=== PATIENT | female | born 1945 | race Caucasian/White ===

== ENCOUNTER 2022-08-17 10:26 | Inpatient (IN) | payer MEDICARE, OTHER ==
[~2022-08-17] VITALS: Ht 162.6 cm; Wt 65.8 kg
[~2022-08-17 10:26] MED LIST: AMOCLA875 PO; CYCL10 PO; HYDACE5 PO; TRAZ100 PO
[2022-08-17 10:53] LABS: Base Excess Venous 15.2 mmol/L; Bicarbonate Venous 35.5 mmol/L (24.0-30.0); PCO2 Venous 93.8 mmHg (38-42); pH Blood Venous 7.26 (7.34-7.37)
[2022-08-17 10:55] LABS: BASOPHILS ABSOLUTE AUTO 0.02 K/mm3 (0.00-0.23); BASOPHILS PERCENT AUTO 0 % (0-2); EOSINOPHILS PERCENT AUTO 0 % (0-6); Hematocrit 36.7 % (33.0-51.0); Hemoglobin 11.2 g/dL (11.5-16.0); IMMATURE GRAN ABSOLUTE AUTO 0.14 K/mm3 (0.00-0.10); IMMATURE GRAN PERCENT AUTO 1 % (0-1); LYMPHOCYTES ABSOLUTE AUTO 0.63 K/mm3 (0.84-5.20); LYMPHOCYTES PERCENT AUTO 5 % (21-46); MONOCYTES ABSOLUTE AUTO 0.88 K/mm3 (0.16-1.47); MONOCYTES PERCENT AUTO 7 % (4-13); Mean Corpuscular HGB 30.9 pg (26.0-34.0); Mean Corpuscular HGB Conc 30.5 g/dL (31.5-36.5); Mean Corpuscular Volume 101 fL (80-100); Mean Platelet Volume 9.7 fL (9.1-12.4); NEUTROPHILS ABSOLUTE AUTO 10.35 K/mm3 (1.96-9.15); NEUTROPHILS PERCENT AUTO 86 % (41-73); Platelet Count 296 K/mm3 (150-400); RDW Coefficient Variation 13.6 % (11.7-14.2); Red Blood Cell Count 3.63 M/mm3 (3.80-5.20); White Blood Cell Count 12.02 K/mm3 (4.00-11.30)
[2022-08-17 11:14] LABS: Anion Gap 2 mmol/L (6-16); Blood Urea Nitrogen 18 mg/dL (8-24); Bun/Creatinine Ratio 27.1 (12.0-20.0); CO2, Blood 42 mmol/L (21-32); Calcium, Blood 9.4 mg/dL (8.5-10.1); Chloride, Blood 97 mmol/L (98-108); Creatinine, Blood 0.66 mg/dL (0.40-1.00); Ethanol (Alcohol), Blood, Med <3 mg/dL; Glomerular Filtration Rate 90 (60-); Glucose, Blood 121 mg/dL (70-99); Magnesium, Blood 2.2 mg/dL (1.6-2.4); Potassium, Blood 4.2 mmol/L (3.5-5.5); Sodium, Blood 141 mmol/L (136-145)
[2022-08-17 11:48] LABS: Influenza A, PCR POSITIVE (NEGATIVE); Influenza B, PCR NEGATIVE (NEGATIVE); Resp Syncytial Virus, PCR NEGATIVE (NEGATIVE); SARS-Cov-2 (COVID-19) PCR, MMC NEGATIVE (NEGATIVE)
[2022-08-17 15:19] LABS: Base Excess Venous 13.1 mmol/L; Bicarbonate Venous 34.3 mmol/L (24.0-30.0); PCO2 Venous 74.1 mmHg (38-42); pH Blood Venous 7.33 (7.34-7.37)
[2022-08-17] MEDS ORDERED: Cyclobenzaprine5 MG PO (17:06)
[2022-08-17] MEDS ORDERED: TRAM50 PO (17:07)
[2022-08-17] MEDS ORDERED: DIAZ5 PO (17:07)
[2022-08-17] MEDS ORDERED: FURO20 PO (17:08)
--- NOTE | 2022-08-17 18:49 | NUR ---
DAY SHIFT SUMMARY PT ARRIVED TO PCU-12 @ 1445. SIGNIFICANT OTHER MATILDE - AT BEDSIDE. PT ORIENTED X4, VSS, ST/PAC/PVCS ON TELEMETRY. ON 5L NC. ADMISSION ASSESSMENT COMPLETED AND ORIENTED TO ROOM AND FALL RISK STATUS. BED ALARM IN PLACE. PT SLEEPY TOWARDS END OF SHIFT AND ASKING TO GO TO BED. MATILDE MENTIONS PATIENT HAVING SOME CONFUSION AT HOME AND "FORGOT" SHE WAS IN BED. PT REORIENTED AND STILL ABLE TO ANSWER ORIENTATION QUESTIONS APPROPRIATELY, PUREWICK IN PLACE. MED REC COMPLETE. WILL PASS ON TO SUSI BARTHOLOMEW
[2022-08-17 19:34] LABS: Source, Urine Straight Cath
[2022-08-17 19:37] LABS: Appearance, Urine Clear (Clear); Bilirubin, Urine Neg (Neg); Blood, Urine 2+ (Neg); Color, Urine Yellow (P-Yellow); Glucose Qualitative, Urine Neg (Neg); Ketones, Urine 4+ (Neg); Leukocyte Esterase, Urine Neg (Neg); Nitrite, Urine Neg (Neg); Protein, Urine 2+ (Neg); Specific Gravity, Urine 1.015 (1.003-1.022); Urobilinogen, Urine NORM (Normal)
[2022-08-17 19:47] LABS: Bacteria Rare /hpf; Squamous Epithelial Cells Not Seen /hpf (Few); White Blood Cells, Urine 0-2 /hpf (0-5)
--- NOTE | 2022-08-17 23:42 | NUR ---
PT INCREASINGLY AGITATED WITH BIPAP. CONTINUES TO REMOVE IT AFTER MULTIPLPE EXPLANATIONS BY RN THE REASON FOR BIPAP USE. PT INFORMED THAT IT MAY TAKE LONGER TO GET BETTER IF SHE DOES NOT WEAR BIPAP AND SHE STATED "THATS OK" TO RN. PT ON 5L NC AT THIS TIME. RT FIELDS NOTIFIED WELL.
--- NOTE | 2022-08-18 01:01 | NUR ---
PT AGREED TO WEAR BIPAP AGAIN. RN WENT INTO ROOM AND BIPAP WAS OFF OF PATIENT. EXPLAINED TO PATIENT THAT SHE NEEDS BIPAP TO GET BETTER. PT STATES SHE WILL GET BETTER AT HOME WITH HER NEBULIZERS. RN EXPLAINED THAT PT IS HAVING COPD EXACERBATION DUE TO THE FLU AND WOULD BENEFIT FROM BIPAP. PT REFUSES. PT PLACED ON NASAL CANNULA AT THIS TIME.
--- NOTE | 2022-08-18 01:30 | NUR ---
PT AGREEING TO WEAR BIPAP AT THIS TIME
--- NOTE | 2022-08-18 01:48 | NUR ---
PT RIPPED OFF BIPAP AND IS REFUSING TO WEAR IT. PLACED ON NASAL CANULA
[2022-08-18 05:51] LABS: Base Excess Venous 16.6 mmol/L; Bicarbonate Venous 37.4 mmol/L (24.0-30.0); PCO2 Venous 65.5 mmHg (38-42); pH Blood Venous 7.41 (7.34-7.37)
[2022-08-18 06:19] LABS: Hematocrit 33.2 % (33.0-51.0); Hemoglobin 10.2 g/dL (11.5-16.0); Mean Corpuscular HGB 30.5 pg (26.0-34.0); Mean Corpuscular HGB Conc 30.7 g/dL (31.5-36.5); Mean Corpuscular Volume 99 fL (80-100); Mean Platelet Volume 9.8 fL (9.1-12.4); Platelet Count 301 K/mm3 (150-400); RDW Coefficient Variation 13.6 % (11.7-14.2); RDW Standard Deviation 49.8 fL (35.1-46.3); Red Blood Cell Count 3.34 M/mm3 (3.80-5.20); White Blood Cell Count 11.66 K/mm3 (4.00-11.30)
[2022-08-18 06:45] LABS: Bun/Creatinine Ratio 32.7 (12.0-20.0); Calcium, Blood 8.3 mg/dL (8.5-10.1); Creatinine, Blood 0.55 mg/dL (0.40-1.00); Potassium, Blood 3.6 mmol/L (3.5-5.5)
--- NOTE | 2022-08-18 09:34 | NUR ---
AM NOTE: PATIENT SLEEPY/DROWSY THIS AM. VERY SOFT VOICE. ALERT AND ORIENTED X3-4. ABLE TO MAKE NEEDS KNOWN. MATILDE AT BEDSIDE. PATIENT AND BOTH STATE THAT PATIENT HAS INTERMIT CONFUSION AT NIGHT. PERRLA. SKIN OVERALL DUSKY AND PALE. SCATTERED SCABS AND BRUISING NOTED THROUGHOUT. ON 5L NASAL CANNULA THIS AM, TITRATED DOWN TO 3L AND SATING LOW-MID 90'S. RESP CARE IN AND BREATHING TREATMENT PROVIDED. BOTH THIS RN AND RESPIRATORY PROVIDING EDUCATION TO PATIENT AND ABOUT COPD, CO2 RETENTION, BIPAP, AND OXYGEN NEED/ BASELINE AT HOME VS. HERE. EDUCATION WILL NEED TO BE REINFORCED. PATIENT WILLING TO WEAR BIPAP THIS AM AFTER BREAKFAST. WEARING BIPAP AT THIS TIME, NO DISTRESS NOTED, AT BEDSIDE. SETTINGS 10/5 AND 35% FIO2 SATING LOW-MID 90'S. LUNGS SOUNDS OVERALL VERY DIM, HARD TO HEAR ANY AIR MOVEMENT. OCCASIONAL WEAK/MOIST COUGH. SPUTUM THICK AND WHITE/CLEAR/LINN. TELE SHOWING SINUS TACH WITH PAC'S. HR 100-110'S. ELEVATED BP THIS AM. PPP. DENIES CHEST PAIN/PRESSURE/PALPITATIONS. MINIMAL EDEMA TO BLE. CHRONIC BACK PAIN, DENIES THIS AM. OVERALL VERY WEAK. TOLERATING PO DIET, EATING SMALL AMOUNTS THIS AM. DRINKING WATER AND COFFEE. BOWEL TONES PRESENT. PURE WICK IN PLACE, SYSTEM CHANGED OUT THIS AM. ATTENDS IN PLACE. REMINDERS TO Q2 TURN. PRESSURE ULCER PREVENTION PROVIDED. POWERGLIDE INFUSING NS AT 75 ML/HR. CALL LIGHT IN REACH. DENIES NEEDS. WILL CONTINUE TO MONITOR. PLAN FOR BED BATH TODAY.
--- NOTE | 2022-08-18 10:55 | NUR ---
BED BATH COMPLETED. PATIENT ABLE TO STAND AND PIVOT TO BEDSIDE COMMODE. BOWEL MOVEMENT. REFUSING TO WEAR BIPAP AT THIS TIME, WANTING A SMALL BREAK. WORE BIPAP FROM 0915-1030ISH THIS AM. REMAINS AT BEDSIDE. PURE WICK REMOVED AT THIS TIME. WILL CONTINUE TO MONITOR.
--- NOTE | 2022-08-18 12:42 | NUR ---
WORE BIPAP FROM [id number]. NOW TAKING A BREAK TO EAT LUNCH. DENIES OTHER NEEDS. THIS RN COMMUNICATED WITH DR. NICKERSON AND PHAN ABOUT HOME TRIOLOGY/BIPAP. NO NEW ORDERS FOR THIS RN TO PLACE.
--- NOTE | 2022-08-18 14:28 | NUR ---
PATIENT REFUSING TO USE BEDPAN/PUREWICK. UP TO BSC. PATIENT HR UP TO 150'S. TRENDING DOWN AT THIS TIME REMAINS SINUS TACH. PATIENT AND EDUCATED ON BEDPAN AND PUREWICK ONCE AGAIN TO HELP PATIENT SAVE ENERGY AND REST. PATIENT VERY IMPULSIVE AND NOT LISTENING TO STAFF WHEN PREFORMING CARES. AT BEDSIDE TRYING TO ASSIST. CALL PLACED TO DR. AUGUSTIN, PATIENT REQUESTING NICOTINE PATCH WELL TUMS. SEE EMAR FOR ORDERS.
--- NOTE | 2022-08-18 16:04 | NUR ---
ECHO BEING DONE AT THIS TIME. DDIMER RESULT IN AND THIS RN CALLED DR. NICKERSON TO UPDATE. NO NEW ORDERS FOR THIS RN TO PLACE. NORMAL SALINE DISCONTINUED. REMAINS AT BEDSIDE. CARE MANAGEMENT IN TO DISCUSS TRIOLOGY/HOME BIPAP WITH AND PATIENT. DENIES NEEDS. WILL CONTINUE TO MONITOR.
--- NOTE | 2022-08-18 16:46 | NUR ---
MESSAGE LEFT WITH CALL BACK NUMBER FOR DR. NICKERSON REGARDING PATIENT'S ELEVATED BP. NO NEW ORDERS AT THIS POINT.
--- NOTE | 2022-08-18 18:03 | NUR ---
SHIFT SUMMARY: INTERMIT CONFUSION CONTINUES. PATIENT ASKING WHERE SHE IS TONIGHT, TALKING ABOUT TIRES, AND DISCUSSING A FAMILY MEMEBER THAT HAS PASSED. SLEEPY/DROWSY MOST OF SHIFT. BIPAP WORN MOST OF DAY, TAKING BREAKS FOR MEALS AND WHEN PATIENT IS ANXIOUS. DENIES NEED FOR ANXIETY MEDICATION AT THIS TIME. BIPAP REMAINS 12/8 AND 30% FIO2. WHEN OFF BIPAP WEARING 3L NASAL CANNULA. TELE CONTINUES TO SHOW SINUS TACH WITH HR 100-120'S. BP ELEVATED. PO METOPROLOL STARTED. BP IMPROVING. TOLERATING PO DIET. EATING SMALL AMOUNTS. USING BEDPAN/PUREWICK. UP TO BSC THIS AM, BUT DID NOT TOLERATE WELL. COMPLAINS OF ACID REFLUX, TUMS PRN. NICOTINE PATCH TO LEFT SHOULDER. AT BEDSIDE. ECHO COMPLETED, RESULTS PENDING. CT PE STUDY COMPLETED, RESULTS PENDING. CALL LIGHT IN REACH. EATING DINNER AT THIS TIME. BED ALARM ON. WILL CONTINUE TO MONITOR AND REPORT OFF TO ONCOMING RN.
[2022-08-19 04:23] LABS: Hemoglobin 10.2 g/dL (11.5-16.0); Mean Corpuscular HGB 31.1 pg (26.0-34.0); Mean Corpuscular HGB Conc 31.9 g/dL (31.5-36.5); Mean Corpuscular Volume 98 fL (80-100); Mean Platelet Volume 9.7 fL (9.1-12.4); Platelet Count 314 K/mm3 (150-400); RDW Coefficient Variation 14.2 % (11.7-14.2); RDW Standard Deviation 51.1 fL (35.1-46.3); Red Blood Cell Count 3.28 M/mm3 (3.80-5.20); White Blood Cell Count 11.75 K/mm3 (4.00-11.30)
[2022-08-19 04:44] LABS: Albumin, Blood 2.3 g/dL (3.4-5.0); Albumin/Globulin Ratio 0.6 (0.8-1.8); Bilirubin, Total 0.3 mg/dL (0.1-1.0); Bun/Creatinine Ratio 41.9 (12.0-20.0); Calcium, Blood 8.2 mg/dL (8.5-10.1); Creatinine, Blood 0.62 mg/dL (0.40-1.00); Globulin, Blood 3.6 g/dL (2.2-4.0); Percent Saturation 45.3 % (15.0-50.0); Total Protein, Blood 5.9 g/dL (6.4-8.2)
--- NOTE | 2022-08-19 09:41 | NUR ---
AM NOTE: PATIENT ALERT AND ORIENTED THIS AM, ABLE TO ANSWER ALL ORIENTING QUESTIONS. IMPROVEMENT FROM YESTERDAY DAY SHIFT. VERY SOFT SPOKEN AND OVERALL VERY WEAK. PERRLA. DENIES NUMBNESS/TINGLING. BILATERAL CRYSTAL SLICER STRENGTH AND EXTREMITY MOVEMENTS. COMPLAINS OF SOME BACK SORENESS. TELE SHOWING SR/ST WITH HR 90-110'S AT REST. ONE EPISODE THIS AM OF SVT WHERE HR UP TO 150'S FOR ABOUT 4 SECONDS, PATIENT LAYING IN BED AT TIME. DENIES SYMPTOMS. OVERALL DENIES CHEST PAIN/PRESSURE/PALPITATIONS. PPP. ELEVATED BP, PO MEDS GIVEN THIS AM. VERY MINIMAL EDEMA TO BLE. ON 3L NASAL CANNULA SATING LOW-MID 90'S, NEEDING TO BE TITRATED TO 4.5L NASAL CANNULA BY RESPIRATORY RECENTLY. WAITING ON HOME TRIOLOGY TO BE DELIVERED. LUNGS SOUNDS VERY DIMINSHED. OCCASIONAL COUGH. DENIES ABDOMINAL PAIN/NAUSEA. TOLERATING PO DIET, EATING VERY SMALL AMOUNTS. UP TO BSC X1 THIS AM, NOT TOLERATING WELL. PURE WICK PLACED. WEARING ATTENDS. AT BEDSIDE. EDUCATION ABOUT COPD REINFORCED THIS AM. CALL LIGHT IN REACH. PATIENT SLEEPING AT THIS TIME. WILL CONTINUE TO MONITOR.
--- NOTE | 2022-08-19 15:52 | NUR ---
Care approval Patient prabhakar Ugalde student nurse provide care during clinical.
--- NOTE | 2022-08-19 18:30 | NUR ---
SHIFT SUMMARY: NO ACUTE CHANGES, SEE PREVIOUS NOTE FOR UPDATE. MENTATION MUCH IMPROVED TODAY COMPARED TO 08/18 DAY SHIFT. REMAINS AT BEDSIDE. ON 3L NASAL CANNULA SATING LOW 90'S. HOME TRILOGY DEVICE DELIVERED TODAY. PATIENT AND RECIEVED EXTENSIVE EDUCATION PER JIL AND THIS RN. WEARING HOME TRILOGY AT THIS TIME AND TOLERATING WELL. EATING SMALL AMOUNTS THROUGHOUT DAY. TELE CONTINUES TO SHOW SINUS RHYTHM/SINUS TACH. BP REMAINS ELEVATED DESPITE NEW PO METOPROLOL. WEARING ATTENDS AND USING PURE WICK. ABLE TO CALL AND MAKE NEEDS KNOWN THROUGHOUT DAY. DENIES NEEDS AT THIS TIME WILL CONTINUE TO MONITOR AND REPORT OFF TO ONCOMING RN.
[2022-08-20 03:39] LABS: Base Excess Venous 18.4 mmol/L; Bicarbonate Venous 40.9 mmol/L (24.0-30.0); PCO2 Venous 39.9 mmHg (38-42); pH Blood Venous 7.61 (7.34-7.37)
[2022-08-20 03:50] LABS: Hematocrit 32.5 % (33.0-51.0); Hemoglobin 10.3 g/dL (11.5-16.0); Mean Corpuscular HGB 30.7 pg (26.0-34.0); Mean Corpuscular HGB Conc 31.7 g/dL (31.5-36.5); Mean Corpuscular Volume 97 fL (80-100); Mean Platelet Volume 9.6 fL (9.1-12.4); Platelet Count 319 K/mm3 (150-400); RDW Coefficient Variation 14.5 % (11.7-14.2); RDW Standard Deviation 51.4 fL (35.1-46.3); Red Blood Cell Count 3.35 M/mm3 (3.80-5.20); White Blood Cell Count 11.73 K/mm3 (4.00-11.30)
[2022-08-20 04:02] LABS: Albumin, Blood 2.3 g/dL (3.4-5.0); Albumin/Globulin Ratio 0.7 (0.8-1.8); Bilirubin, Total 0.3 mg/dL (0.1-1.0); Bun/Creatinine Ratio 48.4 (12.0-20.0); Calcium, Blood 8.4 mg/dL (8.5-10.1); Creatinine, Blood 0.7 mg/dL (0.40-1.00); Globulin, Blood 3.5 g/dL (2.2-4.0); Potassium, Blood 3.3 mmol/L (3.5-5.5); Total Protein, Blood 5.8 g/dL (6.4-8.2)
--- NOTE | 2022-08-20 06:30 | NUR ---
PATIENT DID NOT SLEEP MUCH OVERNIGHT. REMAINED ORIENTED AND ABLE TO COMMUNICATE NEEDS EFFECTIVELY. PATIENT WAS STARTED ON HOME TRILOGY AT THE BEGINNING OF SHIFT, BUT WAS REMOVED AFTER VBG RESULTS THIS MORNING (PH 7.61) AND SWITCHED TO 3L O2 VIA NC AND IS ABLE TO MAINTAIN SPO2 >92%. NO CHANGES TO CARDIOVASCULAR. PUREWICK IN PLACE AND PATENT. NO OTHER ACUTE CHANGES.
[2022-08-20 07:56] LABS: Base Excess Venous 18.1 mmol/L; Bicarbonate Venous 39.6 mmol/L (24.0-30.0); PCO2 Venous 58.4 mmHg (38-42); pH Blood Venous 7.46 (7.34-7.37)
--- NOTE | 2022-08-20 18:42 | NUR ---
DAY SHIFT SUMMARY PT SLEEPY AT START OF SHIFT BUT MORE AWAKE IN THE AFTERNOON. ON 3L NC ALL DAY, SR/ST W/PACS ON TELE. DENIES PAIN. CJ IN ROOM MAJORITY OF SHIFT AND UPDATED ON PLAN OF CARE. SPOKE W/DR. ADORNO VIA PHONE LATE MORNING AND IN PERSON EARLY AFTERNOON REGARDING NEED FOR PT/OT EVAL AND VBG RESULTS. PER MD CONTACT [facility] [place] FOR TITRATION NEEDS. SPOKE WITH NELIDA, RT AT [facility] [place] AND RT TO COME TO BEDSIDE TO ADJUST SETTINGS FOR COMFORT WITH PLAN TO RECHECK VBG IN AM. PURWICK IN PLACE, INCONTINENT TO CONTINENT, ABLE TO GET UP TO BEDSIDE COMMODE X1 TOWARDS END OF SHIFT. 0610 UPDATE - ROSA KRAUSE RT AT BEDSIDE. ADJUSTMENTS MADE PER RT TO TRIOLOGY FOR PT COMFORT AND NEEDS. WILL PASS ON TO SUSI BARTHOLOMEW
[2022-08-21 05:12] LABS: Base Excess Venous 17.9 mmol/L; Bicarbonate Venous 38.9 mmol/L (24.0-30.0); PCO2 Venous 68.7 mmHg (38-42)
--- NOTE | 2022-08-21 05:17 | NUR ---
SHIFT SUMMARY PT IS A/Ox4 AND IS COOPERATIVE WITH CARE PROVIDED BY STAFF. PT HAS USED HER HOME TRILOGY DEVICE FOR MOST OF THE NIGHT WHILE SHE HAS SLEPT. SHE HAS MAINTAINED SPO2 >93% ON 3L VIA NC AND SATS AT >95% ON HER TRILOGY. BP HAD HR HAVE BEEN STABLE T/O THE SHIFT WITH NO ACUTE CHANGES. PURWICK IN PLACE, CONNECTED TO SUCTION AND DRAINING CLEAR/YELLOW COLORED URINE. SPOUSE IN ROOM AND HAS BEEN EAGER PARTICIPANT IN PT'S PLAN OF CARE. POSSIBLE DC TODAY DEPENDING ON RESULTS FROM VBG THIS AM. VSS, NADN T/O THE SHIFT
[2022-08-21 05:49] LABS: Albumin, Blood 2.4 g/dL (3.4-5.0); Anion Gap 1 mmol/L (6-16); Blood Urea Nitrogen 36 mg/dL (8-24); Bun/Creatinine Ratio 52.9 (12.0-20.0); CO2, Blood 41 mmol/L (21-32); Calcium, Blood 8.6 mg/dL (8.5-10.1); Chloride, Blood 103 mmol/L (98-108); Creatinine, Blood 0.68 mg/dL (0.40-1.00); Glomerular Filtration Rate 89 (60-); Glucose, Blood 152 mg/dL (70-99); Sodium, Blood 145 mmol/L (136-145)
[2022-08-21] MEDS ORDERED: FAMO20 PO (16:46)
[2022-08-21] MEDS ORDERED: GUAI600T33 PO (16:47)
[2022-08-21] MEDS ORDERED: IPRAT-ALBUT 0.5-3 ML INH (16:48)
[2022-08-21] MEDS ORDERED: Tamiflu30 MG PO (16:50)
[2022-08-21] MEDS ORDERED: METO25 PO (16:50)
[2022-08-21] MEDS ORDERED: VISBIOME 112.51 EACH PO (16:51)
[2022-08-21] MEDS ORDERED: ALBU2.5V5 INH (16:52)
[2022-08-21] MEDS ORDERED: AZIT500 PO (16:52)
[2022-08-21] MEDS ORDERED: CEFD300 PO (16:53)
[2022-08-21] MEDS ORDERED: Prednisone10 MG PO (16:54)
--- NOTE | 2022-08-21 18:41 | NUR ---
1733 - PT DISCHARGED HOME W/HOME HEALTH FOLLOW-UP AND TRILOGY AFTER DR. ADORNO CONSULTED REPRODUCTION ORDER PROCESSOR DR. FARRIS. ALL DISCHARGE PAPERWORK WENT THROUGH WITH - CJ AND PT. CONTACT INFORMATION GIVEN FOR [facility] AND REFERRAL SENT BY SPACE[employer]FT SYSTEMS ENGINEER. PT LEFT WITH HOME O2 TANK, HOME TRIOLOGY, AND ALL BELONGINGS. POWERGLIDE REMOVED. PT AND FAMILY DENIED NEED FOR FURTHER TEACHING AND ALL QUESTIONS ANSWERED. PT LEFT VIA WHEELCHAIR AND PRIVATE VEHICLE.
== END 2022-08-21 17:41 | disposition home or self-care (01) | DRG 196 ==
LOC: ER 10:26 → PCU 13:56
PROVIDERS: Family Medicine; Internal Medicine; Nurse Practitioner Acute Care; Student in an Organized Health Care Education/Training Program; ADMIT Internal Medicine
PROC: 5A09457 Assistance with Respiratory Ventilation, 24-96 Consecutive Hours, Continuous Positive Airway Pressure (ICD-10-PCS; principal; 2022-08-17)
DX: J84.9 Interstitial pulmonary disease, unspecified (principal); G93.41 Metabolic encephalopathy; J10.00 Influenza due to other identified influenza virus with unspecified type of pneumonia; J96.21 Acute and chronic respiratory failure with hypoxia; J96.22 Acute and chronic respiratory failure with hypercapnia; C34.90 Malignant neoplasm of unspecified part of unspecified bronchus or lung; J43.9 Emphysema, unspecified; D63.8 Anemia in other chronic diseases classified elsewhere; I10 Essential (primary) hypertension; F32.A Depression, unspecified; F41.9 Anxiety disorder, unspecified; Z20.822 Contact with and (suspected) exposure to COVID-19; B34.9 Viral infection, unspecified; S09.90XA Unspecified injury of head, initial encounter; W19.XXXA Unspecified fall, initial encounter; F17.210 Nicotine dependence, cigarettes, uncomplicated; K21.9 Gastro-esophageal reflux disease without esophagitis; E78.00 Pure hypercholesterolemia, unspecified; Z79.899 Other long term (current) drug therapy; Z79.2 Long term (current) use of antibiotics; Z92.3 Personal history of irradiation; Z99.81 Dependence on supplemental oxygen; Z86.73 Personal history of transient ischemic attack (TIA), and cerebral infarction without residual deficits; Z79.891 Long term (current) use of opiate analgesic
CPT/HCPCS: 0241U; 36415; 70450; 71045; 71260; 72125; 80048; 80053; 80069; 81001; 82728; 82803; 83540; 83550; 83605; 83735; 83880; 84145; 85025; 85027; 85379; 87070; 87205; 93005; 93010; 93306; 94640; 94644; 94660; 94664; 94762; 96365; 96375; 97110; 97162; 97166; 97530; 98960; 99285-25; A9270; C1751; G0480; J0456; J0696; J1650; J2920; J2930; J7030; J7050; Q9967

== ENCOUNTER → 2023-06-23 | Outpatient (CLI) | payer MEDICARE ==
[~2023-06-23] MED LIST changes: +ALBU2.5V5 INH; +AMOX500 PO; +AZIT500 PO; +CEFD300 PO; +Cyclobenzaprine5 MG PO; +DIAZ5 PO; +FAMO20 PO; +FURO20 PO; +GUAI600T33 PO; +IPRAT-ALBUT 0.5-3 ML INH; +METO25 PO; +Prednisone10 MG PO; +TRAM50 PO; +Tamiflu30 MG PO; +VISBIOME 112.51 EACH PO; +Vitamin D1000 UNI1 PO
== END ==
LOC: LAB 14:40 → LAB SHORT 14:40
DX: J44.1 Chronic obstructive pulmonary disease with (acute) exacerbation (principal)
CPT/HCPCS: 87070; 87205; 88108

== ENCOUNTER 2023-06-29 19:30 | Inpatient (IN) | payer MEDICARE, OTHER ==
[~2023-06-29] VITALS: Ht 160 cm; Wt 48.2 kg
[~2023-06-29 19:30] MED LIST changes: -AMOX500 PO; -Vitamin D1000 UNI1 PO
[2023-06-29 19:43] LABS: Base Excess Venous 22.7 mmol/L; Bicarbonate Venous 43.6 mmol/L (24.0-30.0); PCO2 Venous 59.1 mmHg (38-42)
[2023-06-29 19:50] LABS: BASOPHILS ABSOLUTE AUTO 0.03 K/mm3 (0.00-0.23); BASOPHILS PERCENT AUTO 0 % (0-2); EOSINOPHILS PERCENT AUTO 0 % (0-6); Hematocrit 32.5 % (33.0-51.0); Hemoglobin 9.4 g/dL (11.5-16.0); IMMATURE GRAN ABSOLUTE AUTO 0.28 K/mm3 (0.00-0.10); IMMATURE GRAN PERCENT AUTO 2 % (0-1); LYMPHOCYTES ABSOLUTE AUTO 1.99 K/mm3 (0.84-5.20); LYMPHOCYTES PERCENT AUTO 10 % (21-46); MONOCYTES ABSOLUTE AUTO 1.79 K/mm3 (0.16-1.47); MONOCYTES PERCENT AUTO 9 % (4-13); Mean Corpuscular HGB Conc 28.9 g/dL (31.5-36.5); Mean Corpuscular Volume 97 fL (80-100); Mean Platelet Volume 9.5 fL (9.1-12.4); NEUTROPHILS ABSOLUTE AUTO 15.17 K/mm3 (1.96-9.15); NEUTROPHILS PERCENT AUTO 79 % (41-73); Platelet Count 514 K/mm3 (150-400); RDW Coefficient Variation 16.4 % (11.7-14.2); RDW Standard Deviation 56.3 fL (35.1-46.3); Red Blood Cell Count 3.36 M/mm3 (3.80-5.20); White Blood Cell Count 19.26 K/mm3 (4.00-11.30)
[2023-06-29 21:49] LABS: Albumin, Blood 2.4 g/dL (3.4-5.0); Albumin/Globulin Ratio 0.4 (0.8-1.8); Bilirubin, Total 0.5 mg/dL (0.1-1.0); Bun/Creatinine Ratio 33.6 (12.0-20.0); Calcium, Blood 9.4 mg/dL (8.5-10.1); Creatinine, Blood 0.57 mg/dL (0.40-1.00); Globulin, Blood 5.8 g/dL (2.2-4.0); Potassium, Blood 3.8 mmol/L (3.5-5.5); Total Protein, Blood 8.2 g/dL (6.4-8.2)
--- NOTE | 2023-06-30 01:30 | NUR ---
ADMIT NOTE; PT ARRIVES FROM ED VIA GURNEY, THE PT WAS SLID FROM THE GURNEY TO THE HOSPITAL BED VIA SLIDER SHEET. UPON FURTHER ASSESSMENT, THE PT WAS MINIMALLY RESPONSIVE. THE PT WOULD OPEN HER EYES TO A HARD STERNAL RUB, THAT IS IT, VSS. CALLED THE RESIDENT, DR. TREADWELL TO COME ASSESS THE PT. DR. TREADWELL CAME UP TO ASSESS THE PT AND SHE WAS ABOUT TO ORDER A STAT CT THE PT AWOKE TO WHEN [facility] HER BLOOD. PT ARRIVES ON 3L NC. NO FURTHER SIGNS OF DISTRESS OR DISCOMFORT. ASSESSMENT COMPLETE. PT CHANGED AND NEW PUREWICK PLACED. PT SLEEPING IN BED WITH THE BED IN THE LOWEST POSITION AND THE CALL LIGHT AT BEDSIDE.
[2023-06-30 02:16] LABS: BASOPHILS ABSOLUTE AUTO 0.02 K/mm3 (0.00-0.23); BASOPHILS PERCENT AUTO 0 % (0-2); EOSINOPHILS PERCENT AUTO 0 % (0-6); Hematocrit 30.1 % (33.0-51.0); Hemoglobin 8.8 g/dL (11.5-16.0); IMMATURE GRAN ABSOLUTE AUTO 0.22 K/mm3 (0.00-0.10); IMMATURE GRAN PERCENT AUTO 2 % (0-1); LYMPHOCYTES ABSOLUTE AUTO 0.41 K/mm3 (0.84-5.20); LYMPHOCYTES PERCENT AUTO 3 % (21-46); MONOCYTES PERCENT AUTO 4 % (4-13); Mean Corpuscular HGB 28.4 pg (26.0-34.0); Mean Corpuscular HGB Conc 29.2 g/dL (31.5-36.5); Mean Corpuscular Volume 97 fL (80-100); Mean Platelet Volume 9.6 fL (9.1-12.4); NEUTROPHILS ABSOLUTE AUTO 11.65 K/mm3 (1.96-9.15); NEUTROPHILS PERCENT AUTO 91 % (41-73); Platelet Count 392 K/mm3 (150-400); RDW Coefficient Variation 16.3 % (11.7-14.2); RDW Standard Deviation 57.1 fL (35.1-46.3)
[2023-06-30 02:27] LABS: Albumin/Globulin Ratio 0.4 (0.8-1.8); Bilirubin, Total 0.3 mg/dL (0.1-1.0); Bun/Creatinine Ratio 33.1 (12.0-20.0); Creatinine, Blood 0.54 mg/dL (0.40-1.00); Globulin, Blood 5.3 g/dL (2.2-4.0); Potassium, Blood 3.9 mmol/L (3.5-5.5); Total Protein, Blood 7.3 g/dL (6.4-8.2)
[2023-06-30 02:33] VITALS: BP 115/65
[2023-06-30 03:30] LABS: Percent Saturation 15.2 % (15.0-50.0)
--- NOTE | 2023-06-30 04:22 | NUR ---
SHIFT SUMMARY; PT HAS PERIODS OF MINIMAL RESPONSIVENESS TO STERNAL RUB FOLLOWED BY PERIODS OF AGITATION AND ATTEMPTING OOB UNSAFELY. THE PT IS AXO X1 AND UNDIRECTABLE. THE PT HAS PULLED AN IV AND CONTONINUES TO TRY AND PULL HER NEW IV. PT WHISPERS " I AM " AT TIMES. CALLED THE RESIDENT THIS MORNING TO NOTIFY HER OF THE PTS BEHAVIOR, ONE TIME DOSE OF 0.5MG OF ATIVAN GIVEN WITH NO EFFECT. ADDITIONALLY, THE PT WAS PLACED IN A NICOLASA RESTRAINT AND A AVASURE CAMERA PLACED IN HER ROOM FOR SAFETY. A ONE TO ONE SITTER IS ALSO PRESENT TO REDIRECT AND ENSURE SHE DOESNT PULL HER IV. PT HAS 3L NC ON WITH 02 SATS >95%. TELE IS IN PLACE-NSR IN THE 60'S. THE PT DENIES ANY PAIN, CHEST PAIN/PRESSURE OR SOB. CURRENTLY THE PT IS SITTING IN BED WITH THE BED IN THE LOWEST POSITION AND THE CALL LIGHT AT BEDSIDE. FIRE EDUCATION PROVIDED, PT DENIES HAVING ANY POSSIBLE IGNITION SOURCES IN POSSESSION.
[2023-06-30 07:55] VITALS: BP 129/65
[2023-06-30 15:41] VITALS: BP 131/63
--- NOTE | 2023-06-30 17:23 | NUR ---
SHIFT SUMMARY: PT A/O X 3, BEDREST AT THIS TIME. PLEASANT AND COOPERATIVE. NICOLASA VEST AND CAMERA WAS DC'D THIS AM. PT WAS A 2 MAX ASSIST TO CHAIR THIS AM AND WAS NOT ABLE TO BEAR WEIGHT. AT TIME PHYSICAL THERAPY CAME TO COMPLETE EVAL PT WAS NOT ABLE TO PARTICIPATE. PT CONTINUES TO BE ON 3 LPM VIA NC. SHE HAS WET PRODUCTIVE COUGH. CONTINUES TO BE SOB WITH TALKING. RT TO SET UP TRILOGY FAMILY BROUGHT IN FOR PT. PT DENIES PAIN. CONTINENT OF URINE. PT STILL HAS HOARSE VOICE.
[2023-06-30 19:13] VITALS: BP 130/73
[2023-07-01 03:11] VITALS: BP 122/42
[2023-07-01 03:13] VITALS: BP 123/53
--- NOTE | 2023-07-01 04:30 | NUR ---
SHIFT SUMMARY; NO ACUTE CHANGES OVERNIGHT. THE PT IS AXO X3 AND BEDREST AT BASELINE. THE PT IS VERY HOARSE SOUNDING AND HARD TO UNDERSTAND DUE TO HOW SOFT HER VOICE IS. THE PT SLEPT W/ HER TRILIOGY FOR THE FIRST HALF OF THE NIGHT BUT THEN TOLD RT THAT SHE FELT LIKE IT WAS BLOWING TO MUCH AIR INTO HER CHEST. PT IS PRESENTLY ON 5L NC W/ O2 SATS >92%. THE PT IS ON TELE-NSR IN THE 60'S. THE PT DENIES ANY SOB, CHEST PAIN/PRESSURE, PAIN AND OR N/V. CURRENTLY THE PT IS SITTING IN BED WITH THE BED IN THE LOWEST POSITION AND THE CALL LIGHT AT BEDSIDE. FIRE SAFETY MAINTAINED T/O THE NIGHT. FIRE SAFETY MAINTAINED T/O THE NIGHT.
[2023-07-01 06:03] LABS: Hematocrit 32.3 % (33.0-51.0); Hemoglobin 9.6 g/dL (11.5-16.0); Mean Corpuscular HGB 28.4 pg (26.0-34.0); Mean Corpuscular HGB Conc 29.7 g/dL (31.5-36.5); Mean Corpuscular Volume 96 fL (80-100); Mean Platelet Volume 9.4 fL (9.1-12.4); Platelet Count 415 K/mm3 (150-400); RDW Standard Deviation 57.6 fL (35.1-46.3); Red Blood Cell Count 3.38 M/mm3 (3.80-5.20); White Blood Cell Count 13.45 K/mm3 (4.00-11.30)
[2023-07-01 06:25] LABS: Albumin, Blood 2.2 g/dL (3.4-5.0); Anion Gap 5 mmol/L (6-16); Blood Urea Nitrogen 18 mg/dL (8-24); Bun/Creatinine Ratio 35.7 (12.0-20.0); CO2, Blood 43 mmol/L (21-32); Calcium, Blood 9.3 mg/dL (8.5-10.1); Chloride, Blood 92 mmol/L (98-108); Glomerular Filtration Rate 95 (60-); Glucose, Blood 106 mg/dL (70-99); Magnesium, Blood 2.1 mg/dL (1.6-2.4); Phosphorus, Blood 2.1 mg/dL (2.5-4.9); Potassium, Blood 3.2 mmol/L (3.5-5.5); Sodium, Blood 140 mmol/L (136-145)
[2023-07-01 07:17] VITALS: BP 126/69
[2023-07-01] MEDS ORDERED: AMOX500 PO (10:31)
[2023-07-01] MEDS ORDERED: Vitamin D1000 UNI1 PO (10:31)
--- NOTE | 2023-07-01 15:24 | NUR ---
DISCHARGE SUMMARY:1345 PT AND SON EDUCATED ON DISCHARGE INSTRUCTIONS AND MEDICATIONS. PT AND SON VU. ASSISTED WITH PACKING PT BELONGINGS. TRANSIT MIXER OPERATOR ASSISTED WITH DRESSING PT. SON PACKED TRILOGY MACHINE UP. ALL BELONGINGS SENT WITH PT. PT ESCORTED TO POV VIA WC WITH SON.
== END 2023-07-01 10:45 | disposition home or self-care (01) | DRG 291 ==
LOC: ER 19:30 → MEDS 19:31 → ENPENDDIS 07-01 09:40 → MEDS 07-01 10:45
PROVIDERS: Emergency Medicine; Family Medicine; Internal Medicine; ADMIT Internal Medicine
PROC: 5A09357 Assistance with Respiratory Ventilation, Less than 24 Consecutive Hours, Continuous Positive Airway Pressure (ICD-10-PCS; principal; 2023-06-29)
DX: I11.0 Hypertensive heart disease with heart failure (principal); I50.31 Acute diastolic (congestive) heart failure; J96.21 Acute and chronic respiratory failure with hypoxia; J96.22 Acute and chronic respiratory failure with hypercapnia; J43.9 Emphysema, unspecified; D72.828 Other elevated white blood cell count; E78.5 Hyperlipidemia, unspecified; F32.A Depression, unspecified; D63.8 Anemia in other chronic diseases classified elsewhere; K21.9 Gastro-esophageal reflux disease without esophagitis; F17.210 Nicotine dependence, cigarettes, uncomplicated; Z86.73 Personal history of transient ischemic attack (TIA), and cerebral infarction without residual deficits; Z85.118 Personal history of other malignant neoplasm of bronchus and lung; Z99.81 Dependence on supplemental oxygen
CPT/HCPCS: 36415; 71045; 71250; 80053; 80069; 82728; 82803; 83540; 83550; 83605; 83735; 83880; 84145; 84484; 85025; 85027; 87070; 87077; 87186; 87205; 92610; 93005; 93010; 93306; 94664; 94760; 94762; 96365; 96367; 96372; 96375; 99285-25; A9270; G0378; J0456; J0696; J1650; J1940; J2060; J2405; J7050